=== PATIENT | female | born 1950 ===

== ENCOUNTER 2018-05-29 06:14 | Day surgery (SDC) | payer BC, OTHER ==
[2018-05-28 13:36] VITALS: BMI 25.0
[~2018-05-29 06:14] MED LIST: Ciprofloxacin 0.3% OPTH SOLN OS SCH; Ketorolac Tromethamine 0.5% Opth Soln (3 ml) OS SCH; Lactated Ringer's 500 ML IV ONE; Phenylephrine 2.5% Opht Soln OS SCH; Tropicamide 0.5% Opht Sol OS SCH; acetaZOLAMIDE 500 mg SR Cap PO ONE
[2018-05-29] MEDS ORDERED: Lactated Ringer's 500 ML IV ONE (07:07)
[2018-05-29] MEDS: Lidocaine 2% MPF (5 ml) Inj ONE ×2 (08:30→08:45)
[2018-05-29] MEDS: Povidone Iodine Ophthalmic 5% Soln ONE ×2 (08:30→08:43)
[2018-05-29] MEDS: Hyaluronidase Human, Recombi 150 U/ML VIAL ONE ×2 (08:31→08:45)
[2018-05-29] MEDS: Carbachol 0.01% IO ONE ×2 (08:31→08:55)
[2018-05-29] MEDS: Chondroitin/Hyaluronate Opth Syringe KIT (0.55 ml-0.5 ml) IO ONE ×2 (08:32→08:56)
[2018-05-29] MEDS: Tobramycin/Dexamethasone OPHT OINT ONE ×2 (08:33→09:15)
[2018-05-29] MEDS ORDERED: Midazolam 2 MG/2 ML VIAL ONE (08:44)
[2018-05-29] MEDS ORDERED: acetaZOLAMIDE 500 mg SR Cap PO ONE (09:31)
[2018-05-29 10:14] VITALS: BP 117/55; PULSE 80; RESP 19; TEMP 97.8; O2SAT 98
--- NOTE | 2018-05-29 22:24 | OP ---
PROCEDURE DATE: 05/29/2018 PREOPERATIVE DIAGNOSIS: Mature cataract, left eye. POSTOPERATIVE DIAGNOSIS: Mature cataract, left eye. OPERATIVE PROCEDURE: Phacoemulsification of left eye, insertion of posterior chamber implant. SURGEON: Dr. Maurice Cm. CO-SURGEON: Dr. Doug Gaston. ANESTHESIA: Local with intravenous sedation. DESCRIPTION OF PROCEDURE: The patient was brought into the operating room, placed in supine position, prepped and draped in the usual fashion for ophthalmic surgery. Lid speculum was inserted, lids and exposing globe. A side-port incision was made superiorly and inferiorly with a disposable sharp blade. Anterior chamber was filled with Viscoat. A near clear corneal incision was made temporally with a 2.75-mm keratome. Capsulorrhexis was then performed with Utrata forceps. Hydrodissection carried out with balanced salt solution. Nucleus was phacoemulsified. Remaining cortical fragments were removed with a split irrigation and aspiration system. The capsular sac was filled with Provisc. A posterior chamber lens was then injected into the capsular sac and rotated into horizontal position. Provisc was aspirated out of the anterior chamber. The pupil was constricted with Miochol. The wound was found to be watertight. Topical Betadine, Timoptic, and TobraDex ointment and pressure patch were applied. The patient tolerated the procedure well. Maurice Cm MD
== END 2018-05-29 10:20 | disposition home or self-care (01) ==
LOC: C.SDS 06:14
PROVIDERS: ATTEND Ophthalmology
DX: H25.12 Age-related nuclear cataract, left eye (principal)
CPT/HCPCS: 66984; 82948; J2250; J3010; J3470; J7120

== ENCOUNTER 2018-07-10 11:04 | Inpatient (IN) | payer BC, MEDICARE ==
[2018-07-10 11:04] VITALS: BMI 25.0
[2018-07-10] MEDS ORDERED: Sodium Chloride 0.9% 1,000 ML ONE (11:24)
[2018-07-10] MEDS ORDERED: Sodium Chloride 0.9% 1,000 ML IV ONE ×3 (11:29→15:19)
[2018-07-10 11:35] LABS: BASO # 0.2 K/uL (0.0-0.2); EOS # 0.2 K/uL (0.0-0.7); HEMOGLOBIN 13.5 g/dL (11.0-16.0); LYMPH # 2.2 K/uL (1.0-4.3); LYMPH % 13.9 % (20.0-40.0); MEAN PLATELET VOLUME 8.5 fL (7.2-11.7); MONO # 0.7 K/uL (0.0-0.8); MONO % 4.1 % (0.0-10.0); NEUT # 12.8 K/uL (1.8-7.0); RBC 4.68 Mil/uL (3.80-5.20); RED CELL DISTRIBUTION WIDTH 13.2 % (11.5-14.5)
[2018-07-10] MEDS ORDERED: Iohexol 240 (50 ml) PO STA (11:38)
[2018-07-10 11:39] LABS: MEAN CELL VOLUME 87.7 fL (81.0-99.0)
--- NOTE | 2018-07-10 11:42 | C.PDOC ---
History Of Present Illness 67 y/o female,w/PMhx of pancreatitis and diabetes, presents to the ER complaining of abdominal pain which began in the morning today. Patient states that the pain began in the RUQ and radiates to the rest of the abdomen. Patient reports that she had associated vomiting. She notes that she usually has few bm's everyday but she only had 1 small bm in the morning today. Denies having fever, chills,diarrhea, dysuria, and hematuria. Time Seen by Provider: 07/10/18 11:16 Chief Complaint (Nursing): Abdominal Pain History Per: Patient History/Exam Limitations: no limitations Onset/Duration Of Symptoms: Hrs Current Symptoms Are (Timing): Still Present Severity: Moderate Past Medical History Reviewed: Historical Data, Nursing Documentation, Vital Signs Vital Signs: Last Vital Signs Temp 97.9 F 07/10/18 11:09 Pulse 92 H 07/10/18 11:09 Resp 18 07/10/18 11:09 BP 169/82 H 07/10/18 11:09 Pulse Ox 97 07/10/18 11:09 - Medical History PMH: HTN, Kidney Stones Surgical History: Endoscopy Family History: States: No Known Family Hx - Social History Hx Alcohol Use: No Hx Substance Use: No - Immunization History Hx Tetanus Toxoid Vaccination: No Hx Influenza Vaccination: No Hx Pneumococcal Vaccination: No Review Of Systems Except As Marked, All Systems Reviewed And Found Negative. Constitutional: Negative for: Fever, Chills Gastrointestinal: Positive for: Vomiting, Abdominal Pain. Negative for: Diarrhea Genitourinary: Negative for: Dysuria, Hematuria Physical Exam - Physical Exam Appears: Non-toxic, No Acute Distress Skin: Normal Color, Warm, Dry Head: Atraumatic, Normacephalic Eye(s): bilateral: Normal Inspection Nose: Normal Oral Mucosa: Moist Neck: Supple Chest: Symmetrical Cardiovascular: Rhythm Regular Respiratory: Normal Breath Sounds, No Rales, No Rhonchi, No Wheezing Gastrointestinal/Abdominal: Soft, Tenderness (mild diffuse tenderness), No Guarding, No Rebound Neurological/Psych: Oriented x3, Normal Speech ED Course And Treatment - Laboratory Results Result Diagrams: 07/10/18 11:31 07/10/18 11:31 Lab Interpretation: Abnormal O2 Sat by Pulse Oximetry: 97 (RA) Pulse Ox Interpretation: Normal - CT Scan/US No standard instances Other Rad Studies (CT/US): Read By Radiologist, Radiology Report Reviewed CT/US Interpretation: FINDINGS: Examination limited by patient obliquity. The patient's chin obscures portions of the right lung apex. LUNGS: Biapical pleural thickening. Question focal opacity in the right lung apex, possibly related to tortuous vasculature exaggerated by patient obliquity. Please note that chest x-ray has limited sensitivity for the detection of pulmonary masses. PLEURA: No significant pleural effusion identified. No definite pneumothorax . CARDIOVASCULAR: Heart size appears within normal limits. Ectatic aorta. Atherosclerotic calcifications. OSSEOUS STRUCTURES: Osseous demineralization. Degenerative changes. Deformity of the right humeral head. VISUALIZED UPPER ABDOMEN: Unremarkable. OTHER FINDINGS: None. IMPRESSION: Biapical pleural thickening. Question focal opacity in the right lung apex, possibly related to tortuous vasculature exaggerated by patient obliquity. If clinically feasible, recommend repeat study with patient in improved alignment. Progress Note: Treated with IVF NSS and toradol IV. On re-evaluation treated with additional IVF and morphine Reassessment Condition: Improved - Physician Consult Information Physician Contacted: Fadia Shannon Medical Decision Making Medical Decision Making: Plan: --Labs --UA --CT- Abd & Pelv. --Toradol IV --IV Fluids Disposition Discussed With Dr.: Fadia Shannon Doctor Will See Patient In The: Hospital - Disposition Disposition: HOSPITALIZED Disposition Time: 15:30 Condition: STABLE - POA Present On Arrival: None - Clinical Impression Clinical Impression: Abdominal pain, Acute pancreatitis - PA / [employer] SUR[employer]YOR / Resident Statement MD/DO has reviewed & agrees with the documentation as recorded. - Scribe Statement The provider has reviewed the documentation as recorded by the Kelly [facility] Provider Attestation All medical record entries made by the Kelly were at my direction and personally dictated by me. I have reviewed the chart and agree that the record accurately reflects my personal performance of the history, physical exam, med [facility] decision making, and the department course for this patient. I have also personally directed, reviewed, and agree with the discharge instructions and disposition. Decision To Admit - Pt Status Changed To: Hospital Disposition Of: Inpatient - Admit Certification Admit to Inpatient:: After my assessment, the patient will require hospitalization for at least two midnights. This is because of the severity of symptoms shown, intensity of services needed, and/or the medical risk in this patient being treated as an outpatient. - InPatient: Physician Admission Certification:: Acute Pancreatitis - . Bed Request Type: Regular Admitting Physician: Fadia Shannon Patient Diagnosis: Abdominal pain, Acute pancreatitis
[2018-07-10 11:52] LABS: ALB/GLOB RATIO 1.3 (1.0-2.1); ALBUMIN 4.7 g/dL (3.5-5.0); ALT/SGPT 40 U/L (9-52); AST/SGOT 94 U/L (14-36); BLOOD UREA NITROGEN 21 mg/dL (7-17); CALCIUM 9.7 mg/dl (8.6-10.4); GFR NON-AFRICAN AMERICAN > 60
[2018-07-10] MEDS ORDERED: Iohexol 240 (50 ml) ONE (11:54)
[2018-07-10 12:34] LABS: LIPASE 45594 U/L (23-300)
[2018-07-10 13:01] LABS: URINE BILIRUBIN NEGATIVE (NEGATIVE); URINE BLOOD NEGATIVE (NEGATIVE); URINE CLARITY Clear (Clear); URINE COLOR Straw (YELLOW); URINE GLUCOSE (UA) NORMAL (Normal); URINE LEUKOCYTE ESTERASE NEG Leu/uL (Negative); URINE PROTEIN NEGATIVE (NEGATIVE); URINE UROBILINOGEN NORMAL mg/dL (0.2-1.0)
[2018-07-10] MEDS ORDERED: Iodixanol 320 MG/ML 100 ML BOTTLE IV ONE (14:00)
--- NOTE | 2018-07-10 14:47 | CT ---
PROCEDURE: CT Abdomen and Pelvis with oral and IV contrast. HISTORY: pain COMPARISON: CT abdomen and pelvis with contrast performed 12/07/17 TECHNIQUE: Contiguous axial images of the abdomen and pelvis. Oral and IV contrast was administered. Coronal and Sagittal reformats generated and reviewed. Contrast dose: 100 mL Visipaque 320 IV Radiation dose: Total exam DLP = 765.52 mGy-cm. This CT exam was performed using one or more of the following dose reduction techniques: Automated exposure control, adjustment of the mA and/or kV according to patient size, and/or use of iterative reconstruction technique. FINDINGS: LOWER THORAX: No visible consolidation, pleural effusion, or pneumothorax. LIVER: Hypoattenuation of the liver compatible with hepatic steatosis. GALLBLADDER AND BILE DUCTS: Unremarkable. PANCREAS: Prominence of the pancreas which appears edematous with surrounding peripancreatic fluid. SPLEEN: Unremarkable. ADRENALS: Unremarkable. KIDNEYS AND URETERS: The kidneys enhance symmetrically. No hydronephrosis or obstructing renal calculus. BLADDER: Under distention of the urinary bladder, otherwise grossly unremarkable. REPRODUCTIVE: Uterus is present. APPENDIX: The appendix appears within normal limits of caliber. No secondary signs of acute appendicitis. BOWEL: The stomach is nondistended. The bowel loops appear within normal limits of caliber without evidence of intestinal obstruction. Circumferential thickening of the left/rectosigmoid colon. Diverticulosis. PERITONEUM: No definite free air. LYMPH NODES: Mesenteric adenopathy measuring up to approximately 12 mm in short axis. Sub cm retroperitoneal lymph nodes. VASCULATURE: No aortic aneurysm. Atherosclerotic calcifications of the aorta. BONES: No acute osseous abnormality is detected. OTHER FINDINGS: Tiny fat containing umbilical hernia. IMPRESSION: Prominence of the pancreas which appears edematous with surrounding peripancreatic fluid. Appearance consistent with acute pancreatitis. Correlate clinically including amylase and lipase. Mesenteric adenopathy measuring up to approximately 12 mm in short axis. Sub cm retroperitoneal lymph nodes. Circumferential thickening of the left/rectosigmoid colon which can be seen in setting of chronic diverticulosis. Clinical correlation is recommended to exclude colitis (I.e. infectious, inflammatory, ischemic) which is considered less likely. Recommend correlation with colonoscopy if already performed. Colonoscopy has not been performed, suggest follow-up as indicated.
[2018-07-10] MEDS ORDERED: Morphine 4 MG/ML VIAL ONE (15:24)
[2018-07-10] MEDS ORDERED: Sodium Chloride 0.9% 1,000 ML IV SCH (17:00)
[2018-07-10] MEDS: Sodium Chloride 0.9% 1,000 ML IV SCH (19:10)
[2018-07-10] MEDS: Morphine 4 MG/ML VIAL IVP PRN (19:19)
--- NOTE | 2018-07-10 20:15 | CP.PCM.HP ---
Past Patient History - Past Medical History & Family History Past Medical History?: Yes - Past Social History Smoking Status: Never Smoked - CARDIAC Hx Hypertension: Yes - PULMONARY Hx Respiratory Disorders: No - NEUROLOGICAL Hx Neurological Disorder: No - HEENT Hx HEENT Problems: Yes Hx Cataracts: Yes Hx Glaucoma: Yes - RENAL Hx Kidney Stones: Yes - ENDOCRINE/METABOLIC Hx Endocrine Disorders: Yes Hx Diabetes Mellitus Type 2: Yes - HEMATOLOGICAL/ONCOLOGICAL Hx Blood Disorders: No - INTEGUMENTARY Hx Dermatological Problems: No - MUSCULOSKELETAL/RHEUMATOLOGICAL Hx Musculoskeletal Disorders: No Hx Falls: No - GASTROINTESTINAL Hx Gastrointestinal Disorders: No - GENITOURINARY/GYNECOLOGICAL Hx Genitourinary Disorders: No - PSYCHIATRIC Hx Substance Use: No - SURGICAL HISTORY Hx Surgeries: Yes Hx Section: Yes Hx Eye Surgery: Yes (LEFT EYE RETINAL DETACHMENT) Other/Comment: CYSTOSCOPY STENT INSERTION AND REMOVAL - ANESTHESIA Hx Anesthesia: Yes Hx Anesthesia Reactions: No Hx Malignant Hyperthermia: No Meds Allergies/Adverse Reactions: Allergies Allergy/AdvReac Type Severity Reaction Status Date / Time No Known Allergies Allergy Verified 05/28/18 13:36 Physical Exam - Constitutional Appears: Well - Head Exam Head Exam: ATRAUMATIC, NORMAL INSPECTION, NORMOCEPHALIC - Eye Exam Eye Exam: EOMI, Normal appearance, PERRL Pupil Exam: NORMAL ACCOMODATION, PERRL - ENT Exam ENT Exam: Mucous Membranes Moist, Normal Exam - Neck Exam Neck exam: Positive for: Normal Inspection - Respiratory Exam Respiratory Exam: Decreased Breath Sounds - Cardiovascular Exam Cardiovascular Exam: REGULAR RHYTHM, +S1, +S2 - GI/Abdominal Exam GI & Abdominal Exam: Diminished Bowel Sounds, Soft - Rectal Exam Rectal Exam: Deferred Results - Vital Signs Recent Vital Signs: Last Vital Signs Temp 97.9 F 07/10/18 15:38 Pulse 71 07/10/18 15:38 Resp 16 07/10/18 16:12 BP 133/75 07/10/18 15:38 Pulse Ox 97 07/10/18 19:01 - Labs Result Diagrams: 07/10/18 11:31 07/10/18 11:31 Labs: Laboratory Results - last 24 hr 07/10/18 07/10/18 07/10/18 11:31 11:31 11:52 WBC 16.0 H D RBC 4.68 Hgb 13.5 Hct 41.0 MCV 87.7 D MCH 29.0 MCHC 33.0 RDW 13.2 Plt Count 370 MPV 8.5 Neut % (Auto) 80.0 H Lymph % (Auto) 13.9 L [place] % (Auto) 4.1 Eos % (Auto) 1.0 Baso % (Auto) 1.0 Neut # (Auto) 12.8 H Lymph # (Auto) 2.2 [place] # (Auto) 0.7 Eos # (Auto) 0.2 Baso # (Auto) 0.2 Sodium 137 Potassium 4.1 Chloride 101 Carbon Dioxide 26 Anion Gap 14 BUN 21 H Creatinine 0.9 Est GFR ( Amer) > 60 Est GFR (Non-Af Amer) > 60 POC Glucose (mg/dL) Random Glucose 190 H D Lactic Acid 1.6 Calcium 9.7 Total Bilirubin 0.6 AST 94 H ALT 40 Alkaline Phosphatase 91 Total Protein 8.5 H Albumin 4.7 Globulin 3.8 Albumin/Globulin Ratio 1.3 Lipase 14531 H Urine Color Urine Clarity Urine pH Ur Specific [place] Urine Protein Urine Glucose (UA) Urine Ketones Urine Blood Urine Nitrate Urine Bilirubin Urine Urobilinogen Ur Leukocyte Esterase Urine WBC (Auto) Urine RBC (Auto) 07/10/18 07/10/18 12:52 16:30 WBC RBC Hgb Hct MCV MCH MCHC RDW Plt Count MPV Neut % (Auto) Lymph % (Auto) [place] % (Auto) Eos % (Auto) Baso % (Auto) Neut # (Auto) Lymph # (Auto) [place] # (Auto) Eos # (Auto) Baso # (Auto) Sodium Potassium Chloride Carbon Dioxide Anion Gap BUN Creatinine Est GFR ( Amer) Est GFR (Non-Af Amer) POC Glucose (mg/dL) 107 Random Glucose Lactic Acid Calcium Total Bilirubin AST ALT Alkaline Phosphatase Total Protein Albumin Globulin Albumin/Globulin Ratio Lipase Urine Color Straw Urine Clarity Clear Urine pH 6.0 Ur Specific [place] 1.006 Urine Protein Negative Urine Glucose (UA) Normal Urine Ketones Negative Urine Blood Negative Urine Nitrate Negative Urine Bilirubin Negative Urine Urobilinogen Normal Ur Leukocyte Esterase Neg Urine WBC (Auto) < 1 Urine RBC (Auto) < 1
[2018-07-10] MEDS ORDERED: Latanoprost 2.5 ml Opht Soln OU SCH (22:00)
[2018-07-10 23:52] VITALS: RESP 20
[2018-07-11] MEDS: Sodium Chloride 0.9% 1,000 ML IV SCH ×4 (00:07→17:35)
[2018-07-11] MEDS: Morphine 4 MG/ML VIAL IVP PRN (00:09)
[2018-07-11 08:08] LABS: BASO % 0.4 % (0.0-2.0); EOS # 0.3 K/uL (0.0-0.7); EOS % 3.4 % (0.0-4.0); LYMPH # 2.5 K/uL (1.0-4.3); LYMPH % 31.1 % (20.0-40.0); MEAN CELL VOLUME 88.3 fL (81.0-99.0); MEAN CORPUSCULAR HEMOGLOBIN 28.2 pg (27.0-31.0); MEAN CORPUSCULAR HGB CONC 31.9 g/dL (33.0-37.0); MEAN PLATELET VOLUME 8.8 fL (7.2-11.7); MONO # 0.4 K/uL (0.0-0.8); MONO % 5.3 % (0.0-10.0); NEUT # 4.8 K/uL (1.8-7.0); NEUT % 59.8 % (50.0-75.0); NRBC % 0.1 % (0.0-2.0); RBC 3.78 Mil/uL (3.80-5.20); RED CELL DISTRIBUTION WIDTH 13.7 % (11.5-14.5)
[2018-07-11 08:13] LABS: HEMOGLOBIN 10.7 g/dL (11.0-16.0)
[2018-07-11 08:23] LABS: ALB/GLOB RATIO 1.2 (1.0-2.1); ALBUMIN 3.3 g/dL (3.5-5.0); ALT/SGPT 20 U/L (9-52); AST/SGOT 32 U/L (14-36); BLOOD UREA NITROGEN 18 mg/dL (7-17); CALCIUM 7.8 mg/dl (8.6-10.4); GFR NON-AFRICAN AMERICAN > 60
[2018-07-11 08:33] LABS: LIPASE 6166 U/L (23-300)
[2018-07-11] MEDS: BRINZOLAMIDE OU SCH ×3 (10:00→17:31)
[2018-07-11] MEDS: [UNRECOGNIZED DRUG - OTHER] OU SCH ×3 (10:00→17:31)
--- NOTE | 2018-07-11 10:12 | CP.PCM.CON ---
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 ABdom pain- moderate. Denies RB, fever. hyperlipid, GB disease. Had pancreatitis last yr- NO GB Stones see. Saw Dr Helton at that time- t hought not related to GB. Review of Systems - Constitutional Constitutional: absent: Fatigue, Fever, Weight Loss, Weakness - EENT Eyes: absent: Photophobia - Cardiovascular Cardiovascular: absent: Chest Pain, Dyspnea - Respiratory Respiratory: absent: Dyspnea, Hemoptysis, Wheezing - Gastrointestinal Gastrointestinal: Abdominal Pain, Nausea, Vomiting. absent: Constipation, Diarrhea, Hematemesis, Hematochezia, Loose Stools, Melena - Genitourinary Genitourinary: absent: Hematuria - Musculoskeletal Musculoskeletal: absent: Muscle Cramps - Integumentary Integumentary: absent: Jaundice - Neurological Neurological: absent: Convulsions - Psychiatric Psychiatric: absent: Hallucinations Past Patient History - Past Medical History & Family History Past Medical History?: Yes - Past Social History Smoking Status: Never Smoked - CARDIAC Hx Hypertension: Yes - PULMONARY Hx Respiratory Disorders: No - NEUROLOGICAL Hx Neurological Disorder: No - HEENT Hx HEENT Problems: Yes Hx Cataracts: Yes Hx Glaucoma: Yes - RENAL Hx Kidney Stones: Yes - ENDOCRINE/METABOLIC Hx Endocrine Disorders: Yes Hx Diabetes Mellitus Type 2: Yes - HEMATOLOGICAL/ONCOLOGICAL Hx Blood Disorders: No - INTEGUMENTARY Hx Dermatological Problems: No - MUSCULOSKELETAL/RHEUMATOLOGICAL Hx Musculoskeletal Disorders: No Hx Falls: No - GASTROINTESTINAL Hx Gastrointestinal Disorders: No - GENITOURINARY/GYNECOLOGICAL Hx Genitourinary Disorders: No - PSYCHIATRIC Hx Substance Use: No - SURGICAL HISTORY Hx Surgeries: Yes Hx Section: Yes Hx Eye Surgery: Yes (LEFT EYE RETINAL DETACHMENT) Other/Comment: CYSTOSCOPY STENT INSERTION AND REMOVAL - ANESTHESIA Hx Anesthesia: Yes Hx Anesthesia Reactions: No Hx Malignant Hyperthermia: No Meds Allergies/Adverse Reactions: Allergies Allergy/AdvReac Type Severity Reaction Status Date / Time No Known Allergies Allergy Verified 05/28/18 13:36 - Medications Medications: Current Medications Heparin Sodium (Porcine) (Heparin) 5,000 units SC Q12 [facility] Last Admin: 07/10/18 21:14 Dose: 5,000 units Home Med (Patient's Own Drops) 1 drop OU TID [facility] Sodium Chloride (Sodium Chloride 0.9%) 1,000 mls @ 175 mls/hr IV .Q5H43M [facility] Last Admin: 07/11/18 05:25 Dose: 175 mls/hr Latanoprost (Xalatan Opht) 0 ml OU HS [facility] Morphine Sulfate (Morphine) 2 mg IVP Q4 PRN PRN Reason: Pain, severe (8-10) Last Admin: 07/11/18 00:09 Dose: 2 mg Ondansetron HCl (Zofran Inj) 4 mg IVP Q8H PRN PRN Reason: Nausea/Vomiting Last Admin: 07/11/18 07:02 Dose: 4 mg Pantoprazole Sodium (Protonix Inj) 40 mg IVP DAILY [facility] Last Admin: 07/10/18 17:40 Dose: 40 mg Prednisolone Acetate (Pred Forte 1% Opht Susp) 0.05 ml OS DAILY [facility] Physical Exam - Constitutional Appears: Non-toxic - Respiratory Exam Respiratory Exam: Clear to Auscultation Bilateral - Cardiovascular Exam Cardiovascular Exam: RRR - GI/Abdominal Exam GI & Abdominal Exam: Normal Bowel Sounds, Soft, Tenderness. absent: Distended, Guarding, Mass, Rebound, Rigid - Extremities Exam Extremities exam: Negative for: calf tenderness - Neurological Exam Neurological exam: Alert, Oriented x3 - Psychiatric Exam Psychiatric exam: Normal Affect Results - Vital Signs Recent Vital Signs: Last Vital Signs Temp 98.5 F 07/11/18 08:08 Pulse 73 07/11/18 08:08 Resp 20 07/11/18 08:08 BP 120/66 07/11/18 08:08 Pulse Ox 96 07/11/18 08:08 - Labs Result Diagrams: 07/11/18 07:53 07/11/18 07:53 Labs: Laboratory Results - last 24 hr 07/10/18 07/10/18 07/10/18 11:31 11:31 11:52 WBC 16.0 H D RBC 4.68 Hgb 13.5 Hct 41.0 MCV 87.7 D MCH 29.0 MCHC 33.0 RDW 13.2 Plt Count 370 MPV 8.5 Neut % (Auto) 80.0 H Lymph % (Auto) 13.9 L [place] % (Auto) 4.1 Eos % (Auto) 1.0 Baso % (Auto) 1.0 Neut # (Auto) 12.8 H Lymph # (Auto) 2.2 [place] # (Auto) 0.7 Eos # (Auto) 0.2 Baso # (Auto) 0.2 Sodium 137 Potassium 4.1 Chloride 101 Carbon Dioxide 26 Anion Gap 14 BUN 21 H Creatinine 0.9 Est GFR ( Amer) > 60 Est GFR (Non-Af Amer) > 60 POC Glucose (mg/dL) Random Glucose 190 H D Lactic Acid 1.6 Calcium 9.7 Total Bilirubin 0.6 AST 94 H ALT 40 Alkaline Phosphatase 91 Total Protein 8.5 H Albumin 4.7 Globulin 3.8 Albumin/Globulin Ratio 1.3 Lipase 30597 H Urine Color Urine Clarity Urine pH Ur Specific [place] Urine Protein Urine Glucose (UA) Urine Ketones Urine Blood Urine Nitrate Urine Bilirubin Urine Urobilinogen Ur Leukocyte Esterase Urine WBC (Auto) Urine RBC (Auto) 07/10/18 07/10/18 07/11/18 12:52 16:30 07:21 WBC RBC Hgb Hct MCV MCH MCHC RDW Plt Count MPV Neut % (Auto) Lymph % (Auto) [place] % (Auto) Eos % (Auto) Baso % (Auto) Neut # (Auto) Lymph # (Auto) [place] # (Auto) Eos # (Auto) Baso # (Auto) Sodium Potassium Chloride Carbon Dioxide Anion Gap BUN Creatinine Est GFR ( Amer) Est GFR (Non-Af Amer) POC Glucose (mg/dL) 107 108 Random Glucose Lactic Acid Calcium Total Bilirubin AST ALT Alkaline Phosphatase Total Protein Albumin Globulin Albumin/Globulin Ratio Lipase Urine Color Straw Urine Clarity Clear Urine pH 6.0 Ur Specific [place] 1.006 Urine Protein Negative Urine Glucose (UA) Normal Urine Ketones Negative Urine Blood Negative Urine Nitrate Negative Urine Bilirubin Negative Urine Urobilinogen Normal Ur Leukocyte Esterase Neg Urine WBC (Auto) < 1 Urine RBC (Auto) < 1 07/11/18 07/11/18 07:53 07:53 WBC 8.0 RBC 3.78 L Hgb 10.7 L D Hct 33.4 L MCV 88.3 MCH 28.2 MCHC 31.9 L RDW 13.7 Plt Count 281 MPV 8.8 Neut % (Auto) 59.8 Lymph % (Auto) 31.1 [place] % (Auto) 5.3 Eos % (Auto) 3.4 Baso % (Auto) 0.4 Neut # (Auto) 4.8 Lymph # (Auto) 2.5 [place] # (Auto) 0.4 Eos # (Auto) 0.3 Baso # (Auto) 0.0 Sodium 137 Potassium 3.8 Chloride 108 H Carbon Dioxide 22 Anion Gap 11 BUN 18 H Creatinine 0.9 Est GFR ( Amer) > 60 Est GFR (Non-Af Amer) > 60 POC Glucose (mg/dL) Random Glucose 103 D Lactic Acid Calcium 7.8 L Total Bilirubin 0.5 AST 32 ALT 20 Alkaline Phosphatase 68 Total Protein 6.1 L Albumin 3.3 L D Globulin 2.7 Albumin/Globulin Ratio 1.2 Lipase 6166 H Urine Color Urine Clarity Urine pH Ur Specific [place] Urine Protein Urine Glucose (UA) Urine Ketones Urine Blood Urine Nitrate Urine Bilirubin Urine Urobilinogen Ur Leukocyte Esterase Urine WBC (Auto) Urine RBC (Auto) Assessment & Plan (1) IDDM (insulin dependent diabetes mellitus) Status: Acute (2) Transaminasemia Assessment and Plan: Mild then improved. Doubt GB disease. Not high enough f or biliary cause of pancreatitis. Status: Acute (3) Acute pancreatitis Assessment and Plan: Elev lipase and CT shows pancreatitis. ETIOLOGY: does not appear to be GB disease- no stones and no signs. Denies ETOH,. Does not take med that are known to cause pancreatitis. Consider pancreatic divisum, auto immune. REC: High IV rate, analgesics, zofran, PPI, CHeck lipois, LIVIER, IgG4, MRCP. Pt needs OPEN MRI- may need to do as outpatient. I discussed this with the patietn and risks including sepsis, renal failure, pulm failure. Discussed with the [employer]. Status: Acute (4) Diverticulosis Assessment and Plan: Suggested on CT. Pt had colonsocopy with DR Wise Status: Acute
[2018-07-11] MEDS: PREDNISOLONE AC 1% OS SCH (11:00)
--- NOTE | 2018-07-11 17:17 | CP.PCM.PN ---
Subjective - Date & Time of Evaluation Date of Evaluation: 07/11/18 Time of Evaluation: 08:30 - Subjective Subjective: clinically same Objective - Vital Signs/Intake and Output Vital Signs (last 24 hours): Temp Pulse Resp BP Pulse Ox 98.1 F 79 20 128/56 L 98 07/11/18 15:00 07/11/18 15:00 07/11/18 15:00 07/11/18 15:00 07/11/18 15:00 Intake and Output: 07/11/18 07/11/18 06:59 18:59 Intake Total 2100 1400 Output Total 0 Balance 2100 1400 - Medications Medications: Current Medications Heparin Sodium (Porcine) (Heparin) 5,000 units SC Q12 [facility] Last Admin: 07/11/18 10:59 Dose: 5,000 units Home Med (Patient's Own Drops) 1 drop OU TID [facility] Last Admin: 07/11/18 13:21 Dose: 1 drop Home Med (Patient's Own Drops) 1 drop OS DAILY [facility] Last Admin: 07/11/18 11:00 Dose: 1 drop Home Med (Patient's Own Drops) 1 drop OU HS [facility] Sodium Chloride (Sodium Chloride 0.9%) 1,000 mls @ 175 mls/hr IV .Q5H43M [facility] Last Admin: 07/11/18 12:26 Dose: 175 mls/hr Morphine Sulfate (Morphine) 2 mg IVP Q4 PRN PRN Reason: Pain, severe (8-10) Last Admin: 07/11/18 00:09 Dose: 2 mg Ondansetron HCl (Zofran Inj) 4 mg IVP Q8H PRN PRN Reason: Nausea/Vomiting Last Admin: 07/11/18 14:09 Dose: 4 mg Pantoprazole Sodium (Protonix Inj) 40 mg IVP DAILY [facility] Last Admin: 07/11/18 10:55 Dose: 40 mg - Labs Labs: 07/11/18 07:53 07/11/18 07:53 - Constitutional Appears: Well - Head Exam Head Exam: ATRAUMATIC, NORMAL INSPECTION, NORMOCEPHALIC - Eye Exam Eye Exam: EOMI, Normal appearance, PERRL Pupil Exam: NORMAL ACCOMODATION, PERRL - ENT Exam ENT Exam: Mucous Membranes Moist, Normal Exam - Neck Exam Neck Exam: Full ROM, Normal Inspection. absent: Lymphadenopathy - Respiratory Exam Respiratory Exam: Decreased Breath Sounds - Cardiovascular Exam Cardiovascular Exam: REGULAR RHYTHM, +S1, +S2 - GI/Abdominal Exam GI & Abdominal Exam: Soft, Diminished Bowel Sounds - Rectal Exam Rectal Exam: Deferred
[2018-07-11] MEDS: TRAVATAN Z 0.004% OPHTHALMIC SOLN OU SCH (21:17)
[2018-07-12] MEDS: Morphine 4 MG/ML VIAL IVP PRN (00:50)
[2018-07-12] MEDS: Dextrose 5%/0.45% NS 1,000 ML IV SCH ×2 (02:45→10:22)
[2018-07-12 08:47] LABS: HEMOGLOBIN 10.8 g/dL (11.0-16.0); MEAN CELL VOLUME 87.8 fL (81.0-99.0); MEAN CORPUSCULAR HEMOGLOBIN 28.7 pg (27.0-31.0); MEAN CORPUSCULAR HGB CONC 32.7 g/dL (33.0-37.0); MEAN PLATELET VOLUME 8.3 fL (7.2-11.7); RBC 3.78 Mil/uL (3.80-5.20); RED CELL DISTRIBUTION WIDTH 13.1 % (11.5-14.5); WHITE BLOOD COUNT 10.2 K/uL (4.8-10.8)
[2018-07-12 09:08] LABS: ALB/GLOB RATIO 1.2 (1.0-2.1); ALBUMIN 3.5 g/dL (3.5-5.0); ALT/SGPT 25 U/L (9-52); AST/SGOT 24 U/L (14-36); BLOOD UREA NITROGEN 10 mg/dL (7-17); CALCIUM 8.2 mg/dl (8.6-10.4); GFR NON-AFRICAN AMERICAN > 60; HDL CHOLESTEROL 35 mg/dL (30-70); LIPASE 925 U/L (23-300)
[2018-07-12 09:14] LABS: LDL CHOLESTEROL 71 mg/dL (0-129)
[2018-07-12] MEDS: PREDNISOLONE AC 1% OS SCH (10:15)
[2018-07-12] MEDS: [UNRECOGNIZED DRUG - OTHER] OU SCH ×3 (10:20→17:26)
[2018-07-12] MEDS: BRINZOLAMIDE OU SCH ×3 (10:20→17:26)
--- NOTE | 2018-07-12 13:42 | CP.PCM.PN ---
Subjective - Date & Time of Evaluation Date of Evaluation: 07/12/18 Time of Evaluation: 13:39 - Subjective Subjective: f/u pancreatitis Abdominal pain improved, notes bloating. NPO Lipase normalizing Can not do closed MRI. Will check sonogram for gallstones Advance diet as tolerated. Anticipate discharge over weekend Objective - Vital Signs/Intake and Output Vital Signs (last 24 hours): Temp Pulse Resp BP Pulse Ox 97.7 F 72 20 143/89 99 07/12/18 08:29 07/12/18 08:29 07/12/18 08:29 07/12/18 08:29 07/12/18 08:29 Intake and Output: 07/12/18 07/12/18 06:59 18:59 Intake Total 2740 Balance 2740 - Medications Medications: Current Medications Heparin Sodium (Porcine) (Heparin) 5,000 units SC Q12 [facility] Last Admin: 07/12/18 10:14 Dose: 5,000 units Home Med (Patient's Own Drops) 1 drop OU TID [facility] Last Admin: 07/12/18 10:20 Dose: 1 drop Home Med (Patient's Own Drops) 1 drop OS DAILY [facility] Last Admin: 07/12/18 10:15 Dose: 1 drop Home Med (Patient's Own Drops) 1 drop OU HS [facility] Last Admin: 07/11/18 21:17 Dose: 1 drop Sodium Chloride (Sodium Chloride 0.9%) 1,000 mls @ 175 mls/hr IV .Q5H43M [facility] Last Admin: 07/12/18 00:00 Dose: 175 mls/hr Dextrose/Sodium Chloride (Dextrose 5%/0.45% Ns 1000 Ml) 1,000 mls @ 125 mls/hr IV .Q8H [facility] Last Admin: 07/12/18 10:22 Dose: 125 mls/hr Morphine Sulfate (Morphine) 2 mg IVP Q4 PRN PRN Reason: Pain, severe (8-10) Last Admin: 07/12/18 00:50 Dose: 2 mg Ondansetron HCl (Zofran Inj) 4 mg IVP Q8H PRN PRN Reason: Nausea/Vomiting Last Admin: 07/11/18 14:09 Dose: 4 mg Pantoprazole Sodium (Protonix Inj) 40 mg IVP DAILY [facility] Last Admin: 07/12/18 10:14 Dose: 40 mg - Labs Labs: 07/12/18 08:39 07/12/18 08:39 - Constitutional Appears: Well, No Acute Distress - Head Exam Head Exam: NORMOCEPHALIC - Eye Exam Eye Exam: absent: Scleral icterus - Respiratory Exam Respiratory Exam: NORMAL BREATHING PATTERN - Cardiovascular Exam Cardiovascular Exam: REGULAR RHYTHM - GI/Abdominal Exam GI & Abdominal Exam: Soft, Hyperactive Bowel Sounds. absent: Tenderness Assessment and Plan (1) Acute pancreatitis Assessment & Plan: Clinically improved. Etiology undetermined rec; Advance diet. Check sono for gallstones, await additional labs. Pt can see me in office Sunday Status: Acute
--- NOTE | 2018-07-12 15:17 | US ---
HISTORY: pancreatitis, R/O gallstones COMPARISON: CT abdomen and pelvis with contrast performed 07/10/18 TECHNIQUE: Sonographic evaluation of the abdomen. FINDINGS: LIVER: Measures 19.6 cm in sagittal dimension. Echogenic liver may be seen in setting of hepatic parenchymal disease or fatty infiltration. No focal hepatic mass identified. The main portal vein appears patent with normal directional flow. No intrahepatic bile duct dilatation. Small perihepatic ascites. GALLBLADDER: Gallstones. No gallbladder wall thickening. Negative sonographic Castillo's sign as assessed by the hand brush filler. COMMON BILE DUCT: Measures 5 mm. PANCREAS: Not well visualized. 1.8 x 1.0 x 1.7 cm questionable lymph node near the pancreatic head. RIGHT KIDNEY: Measures 12.0 x 3.9 x 4.4 cm. No obstructing calculus or hydronephrosis identified. LEFT KIDNEY: Measures 11.3 x 4.5 x 4.2 cm. Punctate 0.3 x 0.2 x 0.2 cm echogenic focus. No obstructing calculus or hydronephrosis identified. SPLEEN: Measures approximately 9.2 cm. AORTA: Limited views appear unremarkable. IVC: Limited views appear unremarkable. OTHER FINDINGS: None. IMPRESSION: Hepatomegaly. Echogenic liver may be seen in setting of hepatic parenchymal disease or fatty infiltration. Small perihepatic ascites. Cholelithiasis. 1.8 x 1.0 x 1.7 cm questionable lymph node near the pancreatic head. Punctate 0.3 x 0.2 x 0.2 cm left renal echogenic focus possibly nonobstructing calculus or tiny focus of fat. Additional findings as above.
[2018-07-12] MEDS: (Novolin R) Insulin Human Regular 100 units/ml vial SC SCH ×2 (16:35→23:19)
[2018-07-12] MEDS: Sodium Chloride 0.9% 1,000 ML IV SCH ×2 (17:27)
--- NOTE | 2018-07-12 19:58 | CP.PCM.PN ---
Subjective - Date & Time of Evaluation Date of Evaluation: 07/12/18 Time of Evaluation: 08:15 - Subjective Subjective: clinically same Objective - Vital Signs/Intake and Output Vital Signs (last 24 hours): Temp Pulse Resp BP Pulse Ox 97.7 F 72 20 143/89 99 07/12/18 08:29 07/12/18 08:29 07/12/18 08:29 07/12/18 08:29 07/12/18 08:29 Intake and Output: 07/12/18 07/13/18 18:59 06:59 Intake Total 1000 Balance 1000 - Medications Medications: Current Medications Heparin Sodium (Porcine) (Heparin) 5,000 units SC Q12 [facility] Last Admin: 07/12/18 10:14 Dose: 5,000 units Home Med (Patient's Own Drops) 1 drop OU TID [facility] Last Admin: 07/12/18 17:26 Dose: 1 drop Home Med (Patient's Own Drops) 1 drop OS DAILY [facility] Last Admin: 07/12/18 10:15 Dose: 1 drop Home Med (Patient's Own Drops) 1 drop OU HS [facility] Last Admin: 07/11/18 21:17 Dose: 1 drop Dextrose/Sodium Chloride (Dextrose 5%/0.45% Ns 1000 Ml) 1,000 mls @ 125 mls/hr IV .Q8H [facility] Last Admin: 07/12/18 10:22 Dose: 125 mls/hr Sodium Chloride (Sodium Chloride 0.9%) 1,000 mls @ 100 mls/hr IV .Q10H [facility] Last Admin: 07/12/18 17:27 Dose: 100 mls/hr Insulin Human Regular (Novolin R) 0 unit SC ACHS [facility]; Protocol Morphine Sulfate (Morphine) 2 mg IVP Q4 PRN PRN Reason: Pain, severe (8-10) Last Admin: 07/12/18 00:50 Dose: 2 mg Ondansetron HCl (Zofran Inj) 4 mg IVP Q8H PRN PRN Reason: Nausea/Vomiting Last Admin: 07/11/18 14:09 Dose: 4 mg Pantoprazole Sodium (Protonix Inj) 40 mg IVP DAILY [facility] Last Admin: 07/12/18 10:14 Dose: 40 mg - Labs Labs: 07/12/18 08:39 07/12/18 08:39 - Constitutional Appears: Well - Head Exam Head Exam: ATRAUMATIC, NORMAL INSPECTION, NORMOCEPHALIC - Eye Exam Eye Exam: EOMI, Normal appearance, PERRL Pupil Exam: NORMAL ACCOMODATION, PERRL - ENT Exam ENT Exam: Mucous Membranes Moist, Normal Exam - Neck Exam Neck Exam: Full ROM, Normal Inspection. absent: Lymphadenopathy - Respiratory Exam Respiratory Exam: Decreased Breath Sounds - Cardiovascular Exam Cardiovascular Exam: REGULAR RHYTHM, +S1, +S2 - GI/Abdominal Exam GI & Abdominal Exam: Soft, Diminished Bowel Sounds - Rectal Exam Rectal Exam: Deferred
[2018-07-12] MEDS: TRAVATAN Z 0.004% OPHTHALMIC SOLN OU SCH (21:25)
[2018-07-12] MEDS: Simethicone 80 mg Chewtab PO SCH (23:19)
[2018-07-13] MEDS: Sodium Chloride 0.9% 1,000 ML IV SCH ×2 (04:00→14:48)
[2018-07-13] MEDS: (Novolin R) Insulin Human Regular 100 units/ml vial SC SCH ×2 (07:57→12:38)
[2018-07-13 09:23] VITALS: BP 164/80; PULSE 99; TEMP 97.7; O2SAT 78
[2018-07-13] MEDS: Simethicone 80 mg Chewtab PO SCH ×2 (10:42→14:48)
[2018-07-13] MEDS: PREDNISOLONE AC 1% OS SCH (10:43)
[2018-07-13] MEDS: [UNRECOGNIZED DRUG - OTHER] OU SCH ×2 (10:45→14:48)
[2018-07-13] MEDS: BRINZOLAMIDE OU SCH ×2 (10:45→14:48)
--- NOTE | 2018-07-13 11:09 | CP.PCM.PN ---
Subjective - Date & Time of Evaluation Date of Evaluation: 07/13/18 Time of Evaluation: 11:07 - Subjective Subjective: Patient denies nausea, vomting, abdominal pain. She had one formed bowel movement today. She is tolerating a liquid diet. Objective - Vital Signs/Intake and Output Vital Signs (last 24 hours): Temp Pulse Resp BP Pulse Ox 97.7 F 99 H 20 164/80 H 78 L 07/13/18 08:00 07/13/18 08:00 07/13/18 08:00 07/13/18 08:00 07/13/18 08:00 Intake and Output: 07/13/18 07/13/18 06:59 18:59 Intake Total 2200 Balance 2200 - Medications Medications: Current Medications Heparin Sodium (Porcine) (Heparin) 5,000 units SC Q12 [facility] Last Admin: 07/13/18 10:42 Dose: Not Given Home Med (Patient's Own Drops) 1 drop OU TID [facility] Last Admin: 07/13/18 10:45 Dose: 1 drop Home Med (Patient's Own Drops) 1 drop OS DAILY [facility] Last Admin: 07/13/18 10:43 Dose: 1 drop Home Med (Patient's Own Drops) 1 drop OU HS [facility] Last Admin: 07/12/18 21:25 Dose: 1 drop Sodium Chloride (Sodium Chloride 0.9%) 1,000 mls @ 100 mls/hr IV .Q10H [facility] Last Admin: 07/13/18 04:00 Dose: 100 mls/hr Insulin Human Regular (Novolin R) 0 unit SC ACHS [facility]; Protocol Last Admin: 07/13/18 07:57 Dose: Not Given Morphine Sulfate (Morphine) 2 mg IVP Q4 PRN PRN Reason: Pain, severe (8-10) Last Admin: 07/12/18 00:50 Dose: 2 mg Ondansetron HCl (Zofran Inj) 4 mg IVP Q8H PRN PRN Reason: Nausea/Vomiting Last Admin: 07/11/18 14:09 Dose: 4 mg Pantoprazole Sodium (Protonix Inj) 40 mg IVP DAILY [facility] Last Admin: 07/13/18 10:41 Dose: 40 mg Simethicone (Mylicon Chew Tab) 80 mg PO TID [facility] Last Admin: 07/13/18 10:42 Dose: 80 mg - Labs Labs: 07/12/18 08:39 07/12/18 08:39 - Constitutional Appears: No Acute Distress - Head Exam Head Exam: ATRAUMATIC, NORMOCEPHALIC - Eye Exam Eye Exam: EOMI, PERRL - Neck Exam Neck Exam: absent: Lymphadenopathy, Thyromegaly - Respiratory Exam Respiratory Exam: NORMAL BREATHING PATTERN. absent: Rales, Rhonchi, Wheezes - Cardiovascular Exam Cardiovascular Exam: REGULAR RHYTHM, +S1, +S2. absent: Gallop, Rubs, Murmur - GI/Abdominal Exam GI & Abdominal Exam: Soft, Normal Bowel Sounds. absent: Tenderness, Mass, Organomegaly - Rectal Exam Rectal Exam: Deferred - Extremities Exam Extremities Exam: absent: Calf Tenderness, Pedal Edema Assessment and Plan (1) Acute pancreatitis Assessment & Plan: Patient is now pain-free. Will advance diet, and, if patient remains asymptomatic, she may be discharged this afternoon. She should follow up with Dr. Wise on Sunday morning. Status: Acute
[2018-07-13 11:14] LABS: BASO # 0.1 K/uL (0.0-0.2); BASO % 1.1 % (0.0-2.0); EOS # 0.4 K/uL (0.0-0.7); EOS % 4.8 % (0.0-4.0); HEMOGLOBIN 10.5 g/dL (11.0-16.0); LYMPH # 2.4 K/uL (1.0-4.3); LYMPH % 27.4 % (20.0-40.0); MEAN CELL VOLUME 87.4 fL (81.0-99.0); MEAN CORPUSCULAR HEMOGLOBIN 29.6 pg (27.0-31.0); MEAN CORPUSCULAR HGB CONC 33.8 g/dL (33.0-37.0); MONO # 0.5 K/uL (0.0-0.8); MONO % 6.2 % (0.0-10.0); NEUT # 5.3 K/uL (1.8-7.0); NEUT % 60.5 % (50.0-75.0); NRBC % 0.1 % (0.0-2.0); RBC 3.55 Mil/uL (3.80-5.20); RED CELL DISTRIBUTION WIDTH 12.9 % (11.5-14.5); WHITE BLOOD COUNT 8.7 K/uL (4.8-10.8)
[2018-07-13 11:21] LABS: ALB/GLOB RATIO 1.2 (1.0-2.1); ALBUMIN 3.7 g/dL (3.5-5.0); ALT/SGPT 20 U/L (9-52); AMYLASE 115 U/L (30-110); AST/SGOT 25 U/L (14-36); BLOOD UREA NITROGEN 7 mg/dL (7-17); CALCIUM 8.8 mg/dl (8.6-10.4); GFR NON-AFRICAN AMERICAN > 60; LIPASE 492 U/L (23-300)
--- NOTE | 2018-07-13 11:43 | CP.PCM.PN ---
Subjective - Date & Time of Evaluation Date of Evaluation: 07/13/18 Time of Evaluation: 08:15 - Subjective Subjective: clinically same Objective - Vital Signs/Intake and Output Vital Signs (last 24 hours): Temp Pulse Resp BP Pulse Ox 97.7 F 99 H 20 164/80 H 78 L 07/13/18 08:00 07/13/18 08:00 07/13/18 08:00 07/13/18 08:00 07/13/18 08:00 Intake and Output: 07/13/18 07/13/18 06:59 18:59 Intake Total 2200 Balance 2200 - Medications Medications: Current Medications Heparin Sodium (Porcine) (Heparin) 5,000 units SC Q12 [facility] Last Admin: 07/13/18 10:42 Dose: Not Given Home Med (Patient's Own Drops) 1 drop OU TID [facility] Last Admin: 07/13/18 10:45 Dose: 1 drop Home Med (Patient's Own Drops) 1 drop OS DAILY [facility] Last Admin: 07/13/18 10:43 Dose: 1 drop Home Med (Patient's Own Drops) 1 drop OU HS [facility] Last Admin: 07/12/18 21:25 Dose: 1 drop Sodium Chloride (Sodium Chloride 0.9%) 1,000 mls @ 100 mls/hr IV .Q10H [facility] Last Admin: 07/13/18 04:00 Dose: 100 mls/hr Insulin Human Regular (Novolin R) 0 unit SC ACHS [facility]; Protocol Last Admin: 07/13/18 07:57 Dose: Not Given Morphine Sulfate (Morphine) 2 mg IVP Q4 PRN PRN Reason: Pain, severe (8-10) Last Admin: 07/12/18 00:50 Dose: 2 mg Ondansetron HCl (Zofran Inj) 4 mg IVP Q8H PRN PRN Reason: Nausea/Vomiting Last Admin: 07/11/18 14:09 Dose: 4 mg Pantoprazole Sodium (Protonix Inj) 40 mg IVP DAILY [facility] Last Admin: 07/13/18 10:41 Dose: 40 mg Simethicone (Mylicon Chew Tab) 80 mg PO TID [facility] Last Admin: 07/13/18 10:42 Dose: 80 mg - Labs Labs: 07/13/18 10:56 07/13/18 10:56 - Constitutional Appears: Well - Head Exam Head Exam: ATRAUMATIC, NORMAL INSPECTION, NORMOCEPHALIC - Eye Exam Eye Exam: EOMI, Normal appearance, PERRL Pupil Exam: NORMAL ACCOMODATION, PERRL - ENT Exam ENT Exam: Mucous Membranes Moist, Normal Exam - Neck Exam Neck Exam: Full ROM, Normal Inspection. absent: Lymphadenopathy - Respiratory Exam Respiratory Exam: Decreased Breath Sounds - Cardiovascular Exam Cardiovascular Exam: REGULAR RHYTHM, +S1, +S2 - GI/Abdominal Exam GI & Abdominal Exam: Soft, Diminished Bowel Sounds - Rectal Exam Rectal Exam: Deferred
--- NOTE | 2018-07-13 13:40 | CP.PCM.PN ---
Subjective - Date & Time of Evaluation Date of Evaluation: 07/13/18 Time of Evaluation: 13:40 - Subjective Subjective: PATIENT SEEN AND EXAMINED AT THE BEDSIDE Objective - Vital Signs/Intake and Output Vital Signs (last 24 hours): Temp Pulse Resp BP Pulse Ox 97.7 F 99 H 20 164/80 H 78 L 07/13/18 08:00 07/13/18 08:00 07/13/18 08:00 07/13/18 08:00 07/13/18 08:00 Intake and Output: 07/13/18 07/13/18 06:59 18:59 Intake Total 2200 Balance 2200 - Medications Medications: Current Medications Heparin Sodium (Porcine) (Heparin) 5,000 units SC Q12 [facility] Last Admin: 07/13/18 10:42 Dose: Not Given Home Med (Patient's Own Drops) 1 drop OU TID [facility] Last Admin: 07/13/18 10:45 Dose: 1 drop Home Med (Patient's Own Drops) 1 drop OS DAILY [facility] Last Admin: 07/13/18 10:43 Dose: 1 drop Home Med (Patient's Own Drops) 1 drop OU HS [facility] Last Admin: 07/12/18 21:25 Dose: 1 drop Sodium Chloride (Sodium Chloride 0.9%) 1,000 mls @ 100 mls/hr IV .Q10H [facility] Last Admin: 07/13/18 04:00 Dose: 100 mls/hr Insulin Human Regular (Novolin R) 0 unit SC ACHS [facility]; Protocol Last Admin: 07/13/18 12:38 Dose: 2 units Morphine Sulfate (Morphine) 2 mg IVP Q4 PRN PRN Reason: Pain, severe (8-10) Last Admin: 07/12/18 00:50 Dose: 2 mg Ondansetron HCl (Zofran Inj) 4 mg IVP Q8H PRN PRN Reason: Nausea/Vomiting Last Admin: 07/11/18 14:09 Dose: 4 mg Pantoprazole Sodium (Protonix Inj) 40 mg IVP DAILY [facility] Last Admin: 07/13/18 10:41 Dose: 40 mg Simethicone (Mylicon Chew Tab) 80 mg PO TID [facility] Last Admin: 07/13/18 10:42 Dose: 80 mg - Labs Labs: 07/13/18 10:56 07/13/18 10:56 Assessment and Plan - Assessment and Plan (Free Text) Assessment: FOLLOW UP WITH Glenna CHAVIRA IN HIS OFFICE ----CALL FOR APPOINTMENT FOLLOW UP WITH DR HOYT IN HIS OFFICE ON SUNDAY (07/15/2018) ----CALL FOR APPOINTMENT CONTINUE HOME MEDICATION ACTIVITY TOLERATED CALL DR Glenna CHAVIRA OR GO TO THE EMERGENCY ROOM IF SYMPTOM RETURN OR WORSENING
== END 2018-07-13 15:30 | disposition home or self-care (01) | DRG 440 ==
LOC: C.ER 11:04 → C.9E 15:25 → C.3T 15:38
PROVIDERS: ADMIT Internal Medicine Nephrology; ATTEND Internal Medicine Nephrology
DX: K85.90 Acute pancreatitis without necrosis or infection, unspecified (principal); K57.90 Diverticulosis of intestine, part unspecified, without perforation or abscess without bleeding; I10 Essential (primary) hypertension; E11.39 Type 2 diabetes mellitus with other diabetic ophthalmic complication; H42 Glaucoma in diseases classified elsewhere; Z79.4 Long term (current) use of insulin

== ENCOUNTER 2018-08-23 07:45 | Day surgery (SDC) | payer BC ==
[2018-08-08 13:37] VITALS: BMI 30.7
[2018-08-23] MEDS ORDERED: ceFAZolin 1 gm in NS 1 GM/100 ML BAG IVPB ONE (12:31)
[2018-08-23] MEDS ORDERED: Bupivacaine HCl 0.25% PF (10 ml) Inj ONE (12:32)
[2018-08-23] MEDS ORDERED: Lidocaine/Epinephrine 1% 1:100000 10 ML IJ ONE (12:32)
[2018-08-23] MEDS ORDERED: Propofol 10 mg/ml Inj (20 ML) ONE (12:37)
[2018-08-23] MEDS ORDERED: Rocuronium 10 mg/ml (5 ml) ONE ×2 (12:39→12:44)
[2018-08-23] MEDS ORDERED: Bupivacaine Liposomal Inj 20 ml INFIL ONE (13:19)
[2018-08-23] MEDS ORDERED: Sodium Chloride 0.9% 40 ML IV ONE (13:27)
[2018-08-23] MEDS ORDERED: ePHEDrine 50 mg/ml Inj ONE (13:44)
[2018-08-23] MEDS ORDERED: Neostigmine 1:1000 (1 mg/ml) Inj ONE (13:47)
[2018-08-23] MEDS ORDERED: Phenylephrine 10 mg/ml Inj ONE (13:50)
[2018-08-23] MEDS ORDERED: Esmolol 100 mg/10ml Inj IV ONE (13:56)
[2018-08-23] MEDS ORDERED: Lactated Ringer's 1,000 ML IV ONE (14:47)
[2018-08-23] MEDS: HYDROmorphone 0.5 mg/0.5 ml ISec IVP PRN ×2 (15:00→16:00)
--- NOTE | 2018-08-23 15:04 | PCM.SURG1 ---
Surgeon's Initial Post Op Note - Surgeon's Notes Surgeon: Dr. Rao [employer] Supervisor: PGY3 Type of Anesthesia: General Endo, Block Regional, Local Pre-Operative Diagnosis: cholelithiasis; gallstone pancreatitis Operative Findings: see dictation Post-Operative Diagnosis: same Operation Performed: robotic lysis of adhesions, cholecystectomy, and true-cut liver biopsy with TAP block Specimen/Specimens Removed: gallbladder; liver biopsy Estimated Blood Loss: EBL {In ML}: 10 Blood Products Given: N/A Drains Used: No Drains Post-Op Condition: Good Date of Surgery/Procedure: 08/23/18 Time of Surgery/Procedure: 15:03
[2018-08-23] MEDS ORDERED: Oxycodone/Acetaminophen 5/325 mg Tab PO PRN (17:08)
[2018-08-23 18:17] VITALS: RESP 18
[2018-08-23 18:46] VITALS: BP 158/68; PULSE 90; TEMP 97.4; O2SAT 97
--- NOTE | 2018-08-24 03:34 | OP ---
PROCEDURE DATE: 08/23/2018 PREOPERATIVE DIAGNOSES: 1. Chronic cholecystitis and cholelithiasis. 2. Fatty liver. POSTOPERATIVE DIAGNOSES: 1. Chronic cholecystitis and cholelithiasis. 2. Extensive peritoneal adhesion of the omentum, colon, and duodenum to the gallbladder. 3. Fatty liver. 4. Morbid obesity. PROCEDURES DONE: 1. Robotic cholecystectomy. 2. Robotic extensive enterolysis and lysis of adhesions. 3. Laparoscopic bilateral transversus abdominis plane block placement. 4. Liver biopsy Abel-Cut. SURGEON: Sixto Rao MD [employer] OPERATOR: Connie Medley DO, PGY-3 resident. TYPE OF ANESTHESIA: General endotracheal tube anesthesia. ESTIMATED BLOOD LOSS: Around 10 mL. DRAINS: None. PATHOLOGY: The liver biopsy was sent for the pathology as well as the gallbladder with the gallstone was sent for the pathology. COMPLICATIONS: None. INTRAOPERATIVE FINDINGS: The patient had changes of chronic cholecystitis and cholelithiasis; and the patient had extensive peritoneal adhesions of the omentum, colon, and duodenum to the gallbladder and extensive lysis of adhesions was done. It took approximately 20 to 25 minutes extra for the routine procedure due to enterolysis and lysis of adhesions. The patient's liver appeared to have very tiny white spots all over the liver. DESCRIPTION OF PROCEDURE: On intraoperative steps, this is a 68-year-old female who was diagnosed with chronic cholecystitis and cholelithiasis, and the patient had previous pancreatitis attack, and the patient was consented for the robotic cholecystectomy and possible open as well as the liver biopsy for the fatty liver, brought to the OR, placed supine on the operating table. After induction of the anesthesia, the abdomen was prepped and draped in the usual sterile fashion. Supraumbilical transverse incision was made using the open technique. Peritoneal cavity was entered. Pneumo was created, 3-8 mm port was placed. The robot was brought in. Camera arm as well as arm 1 and arm 2 were docked, and the gallbladder appeared to be covered with omentum and lysis of adhesions was done. Gallbladder was retracted cranially. The body of the gallbladder was dissected free from the colon as well as from the duodenum and further retraction was done and the duodenum was firmly attached to the Calot's triangle, and again enterolysis and lysis of adhesions was done, and now the intraoperative Firefly was used to identify the ductal anatomy. The drop down approach was done. Critical view of the safety was done and cystic duct and cystic artery were clipped at 3 places and cut in between 2 clips nearby gallbladder, and the gallbladder was dissected free from the gallbladder fossa, taken in EndoCatch bag, taken out through the umbilical port site and sent off the table for the pathology. There was proper hemostasis in each and every part of the procedure and suction irrigation of the gallbladder fossa as well as the perihepatic area was done. Now, laparoscopic TAP block was given on both right and left side transverse abdominis muscle plane area. The 30:30 mL of Exparel with Decadron was injected, and after proper TAP block, all the ports were taken out under vision. Pneumo was deflated and umbilical port site was closed in 2 layers. The fascia with 0 Vicryl interrupted suture, skin with a 4-0 Monocryl and dry sterile dressing was applied. The patient tolerated the procedure well. Count of instrument and gauze was correct. There was no apparent complication. The patient was extubated in OR and sent to the postanesthesia care unit in stable condition. Sixto Rao MD
== END 2018-08-23 20:00 | disposition home or self-care (01) ==
LOC: C.SDS 07:45
PROVIDERS: ATTEND Surgery Surgical Critical Care
DX: K85.10 Biliary acute pancreatitis without necrosis or infection (principal); K80.10 Calculus of gallbladder with chronic cholecystitis without obstruction; K76.0 Fatty (change of) liver, not elsewhere classified; K66.0 Peritoneal adhesions (postprocedural) (postinfection); E66.01 Morbid (severe) obesity due to excess calories
CPT/HCPCS: 47000; 47562; 82948; 88304; 88307; J0690; J1100; J1170; J2370; J2405; J2704; J2710; J2765; J3010; J7120

== ENCOUNTER 2018-09-30 10:10 | Outpatient (CLI) | payer BC | END 2018-09-30 10:11 | disposition home or self-care (01) | LOC: C.CTH 10:10 | DX: R10.9 Unspecified abdominal pain (principal) ==